=== PATIENT | female | born 1970 | race Caucasian/White ===

== ENCOUNTER 2019-10-19 16:48 | Outpatient (CLI) | payer BC, SELFPAY ==
--- NOTE | ~2019-10-19 | XR_ITS ---
XR lumbar spine 2-3V 10/19/2019 17:11 Indication: Low back pain Procedure: 3 views lumbar spine Comparison: 03/26/2013 Findings: Mild disc narrowing at L5-S1. No fracture or traumatic malalignment. There is probable old coccygeal fracture. Sacral foramen are symmetric. No evidence for spondylolysis or spondylolisthesis. Impression: 1: Mild lumbar spondylosis. Reviewed, dictated and finalized at location A. Impression: 1: Mild lumbar spondylosis.
== END 2019-10-19 16:49 | disposition home or self-care (01) ==
LOC: ANHIMG 16:54
PROVIDERS: PCP Family Medicine; Visit Provider Nurse Practitioner Family
DX: M54.9 Dorsalgia, unspecified (principal); M47.816 Spondylosis without myelopathy or radiculopathy, lumbar region
CPT/HCPCS: 72100

== ENCOUNTER 2020-03-17 17:05 | Outpatient (CLI) | payer BC, SELFPAY ==
--- NOTE | ~2020-03-17 | XR_ITS ---
EXAMINATION: XR foot RT 2V INDICATION: Right foot pain, initial encounter TECHNIQUE: Two views of the right foot are obtained. COMPARISON: None available FINDINGS: There is an acute, traumatic, closed, comminuted fracture at the base of the fourth proxima l phalanx which appears to extend to the fourth metatarsophalangeal joint. Soft tissue swelling surro unds the fracture. No additional acute osseous findings are evident. There is mild osteoarthritis of multiple interphalangeal joints. IMPRESSION: 1. Acute fracture at the base of the fourth proximal phalanx which appears to extend to the metatarso phalangeal joint. Reviewed, dictated and finalized at location A. IMPRESSION: 1. Acute fracture at the base of the fourth proximal phalanx which appears to e xtend to the metatarsophalangeal joint.
== END 2020-03-17 17:06 | disposition home or self-care (01) ==
LOC: ANHIMG 17:08
PROVIDERS: PCP Family Medicine; Visit Provider Nurse Practitioner Family
DX: M79.671 Pain in right foot (principal); S92.511A Displaced fracture of proximal phalanx of right lesser toe(s), initial encounter for closed fracture; W22.8XXA Striking against or struck by other objects, initial encounter
CPT/HCPCS: 73620

== ENCOUNTER → 2021-06-20 09:25 | Outpatient (CLI) | payer BC, SELFPAY ==
[2021-06-21 16:24] LABS: SARS-CoV-2 RNA PCR Negative
== END ==
PROVIDERS: PCP Family Medicine; Visit Provider Nurse Practitioner Family
DX: R68.89 Other general symptoms and signs (principal); Z20.822 Contact with and (suspected) exposure to COVID-19
CPT/HCPCS: C9803; U0003; U0005

== ENCOUNTER → 2022-05-11 14:45 | Outpatient (CLI) | payer BC, SELFPAY ==
--- NOTE | ~2022-05-11 | MM_ITS ---
EXAMINATION: MM screening mary BI w cate HISTORY: Screening mammogram TECHNIQUE: Craniocaudal and mediolateral oblique 3-D tomosynthesis images were obtained and synthetic 2-D images were generated. CAD analysis was submitted and interpreted. COMPARISON: No prior mammogram is available for comparison at this institution. BREAST PARENCHYMAL COMPOSITION: The breasts are heterogeneously dense, which may obscure small masses . FINDINGS: RIGHT BREAST: There is a mass in the posterior third of the upper outer quadrant of the breast. An as ymmetry is present in the middle third of the inner breast on the craniocaudal view. LEFT BREAST: There are possible masses in the middle/posterior third of the outer breast best appreci ated on the craniocaudal view. IMPRESSION: 1. Bilateral breast findings as described above which may represent the patient's baseline however no comparison is currently available. 2. Comparison with prior mammograms is necessary. BI-RADS Category 0: Incomplete: Needs comparison with prior mammograms. Reviewed, dictated and finalized at location A. BOILER IMPRESSION: 1. Bilateral breast findings as described above which may represent the patient 's baseline however no comparison is currently available. 2. Comparison with prior mammograms is necessary. BI-RADS Category 0: Incomplete: Needs comparison with prior mammograms.
== END ==
PROVIDERS: PCP Family Medicine; Visit Provider Obstetrics & Gynecology
DX: Z12.31 Encounter for screening mammogram for malignant neoplasm of breast (principal); R92.8 Other abnormal and inconclusive findings on diagnostic imaging of breast
CPT/HCPCS: 77063; 77067

== ENCOUNTER → 2022-06-16 08:25 | Outpatient (CLI) | payer BC, SELFPAY ==
--- NOTE | ~2022-06-16 | MMUS_ITS ---
EXAMINATION: MM diagnostic mary BI w cate, US breast RT limited HISTORY: Right breast mass on screening mammogram TECHNIQUE: Additional 3-D tomosynthesis images of the right breast were performed and synthetic 2-D i mages were generated. CAD analysis was submitted and interpreted. High resolution limited right breas t ultrasound was performed. COMPARISON: 05/11/2022, 08/13/2019, 07/20/2019 BREAST PARENCHYMAL COMPOSITION: The breasts are heterogeneously dense, which may obscure small masses . FINDINGS: MAMMOGRAPHIC FINDINGS: There is a 2.4 cm, obscured, equal density mass in the posterior left breast at 10:00 14 cm from the nipple. No suspicious calcification or architectural distortion are identified. ULTRASOUND: There is a 2.4 x 1.1 cm mass at the 10:00 location 9 cm from the nipple with sonographic features con sistent with an intramammary lymph node. IMPRESSION: 1. No mammographic or sonographic evidence of malignancy. 2. Recommend routine screening mammography in one year. BI-RADS Category 2: Benign finding(s). Reviewed, dictated and finalized at location A. FIT DIRECTOR IMPRESSION: 1. No mammographic or sonographic evidence of malignancy. 2. Recommend routine screening mammography in one year. BI-RADS Category 2: Benign finding(s).
== END ==
PROVIDERS: PCP Family Medicine; Visit Provider Obstetrics & Gynecology
DX: R92.8 Other abnormal and inconclusive findings on diagnostic imaging of breast (principal)
CPT/HCPCS: 76642; 77062; 77066; G0279

== ENCOUNTER 2022-10-15 03:47 | Day surgery (SDC) | payer BC, SELFPAY ==
[2022-10-01 14:29] VITALS: BMI 42.0
[2022-10-15 07:39] VITALS: BP 123/88; PULSE 56; RESP 16; TEMP 36.2; O2SAT 100; BMI 42.1
[2022-10-15] MEDS: LACTATED RINGERS 1,000 ML 150 ML IV CONT (07:48)
--- NOTE | 2022-10-15 08:06 | PM.HPGS ---
History of Present Illness History of Present Illness Consent: Risks, benefits, and alternatives have been discussed and questions answered. Patient agrees to proceed with procedure. Chief complaint: neoplasm screening Narrative: Michelle Martel is a 52 year old female here for first screening colonoscopy Review of Systems Constitutional: Constitutional: Denies headache(s) and Denies weakness Eyes: Eyes: Denies blurry vision ENT: Reports Normal hearing present, Denies headache(s) and Denies neck pain Cardiovascular: Cardiovascular: Denies chest pain and Denies dyspnea Respiratory: Respiratory: Denies dyspnea Gastrointestinal: Gastrointestinal: Reports no additional gastrointestinal complaints Genitourinary: Genitourinary: Denies dysuria Musculoskeletal: Musculoskeletal: Denies neck pain Integumentary/Breasts: Skin/Breast: Denies dry skin Neurologic: Reports Normal hearing present, Denies headache(s) and Denies weakness Psychiatric: Psychiatric: Denies anxiety Endocrine: Endocrine: Denies change in body appearance Hematologic/Lymphatic: Hematologic/Lymphatic: Denies easy bleeding Allergic/Immunologic: Allergic/Immunologic: Denies urticaria PMF Past Medical History Medical History Impingement syndrome of right shoulder Morbid (severe) obesity due to excess calories Family History Family History Mother Hypertension Family history of diabetes mellitus in first degree relative Diabetes mellitus Sibling Family history of diabetes mellitus in first degree relative Diabetes mellitus Father Social History Social History (Updated 07/22/22 @ 08:12 by SHRUTI Carrillo) Smoking status: Never smoker Second hand tobacco smoke exposure: No Alcohol intake: current Alcohol use details: occasional on holiday Substance use: never Substance use type: does not use Lack of Transportation: YES Lack of Food: Never True Current Housing: I Have Housing Concerned About Future Housing: No Difficulty Paying Gas/Electric Bills: No Difficulty Paying for Meds: No Currently Unemployed: No Education: Bachelor's Degree Difficulty w/ Childcare or Family Care: No Living arrangements: with family Occupation/Education: occupation 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 Gender identity (if verbalized by the patient): Female Spiritual care concerns: No Meds Home Medications and Allergies Home Medications Medication Instructions Recorded Confirmed Type cyclobenzaprine 10 mg tablet 10 mg PO TID PRN muscle spasm #30 10/17/19 10/15/22 Rx tabs albuterol sulfate 90 mcg/actuation 1 puff inhalation Q4H PRN 06/17/21 10/15/22 Rx aerosol inhaler (ProAir HFA) shortness of breath or wheezing #6.7 grams hydrochlorothiazide 25 mg tablet 25 mg PO DAILY #90 tabs 09/24/21 10/15/22 Rx semaglutide 1 mg/dose (4 mg/3 mL) 1 mg (0.75 mL) subcut WEEKLY #9 mL 09/24/21 10/15/22 Rx subcutaneous pen injector nebivolol 10 mg tablet 10 mg PO DAILY #90 tabs 04/05/22 10/15/22 Rx losartan 100 mg tablet 100 mg PO DAILY #90 tabs 10/01/22 10/15/22 Rx Allergies Allergy/AdvReac Type Severity Reaction Status Date / Time No Known Allergies Allergy Verified 10/15/22 07:38 Vital Signs Vital Signs - 24 hr 10/15/22 07:39 Temperature 97.1 F L Pulse Rate 56 L Respiratory Rate 16 Blood Pressure 123/88 Pulse Oximetry 100 Oxygen Delivery Room Air Exam Const: General: comfortable and no acute distress HENMT: Face/Nose/Sinus: Normal nares present Eyes: General: appearance normal, both eyes and all related structures Neck: Neck: no JVD Resp: Auscultation: clear to auscultation bilaterally Cardio: Rate: regular rate Rhythm: regular rhythm GI: Inspection: non-distended GI Palp: Yes Soft to palpation Skin: Genera
--- NOTE | 2022-10-15 08:06 | WPDANESEPPF ---
Anes - Initial Pre Proc Eval Procedure: Operation Date: 10/15/22 08:30 Proposed Procedures p Screening Colonoscopy - Cody Fraire MD Date/Time: 10/15/22 08:06 Surgeon: Cody Fraire MD Pre Op Diagnosis: neoplasm screening Patient Data Age: 52 Gender: F Height: 1.68 m Weight: 118.4 kg Last Vital Signs Temp 97.1 F L 10/15/22 07:39 Pulse 56 L 10/15/22 07:39 Resp 16 10/15/22 07:39 BP 123/88 10/15/22 07:39 Pulse Ox 100 10/15/22 07:39 O2 Del Method Room Air 10/15/22 07:39 Allergies Allergy/AdvReac Type Severity Reaction Status Date / Time No Known Allergies Allergy Verified 10/15/22 07:38 Home Medications Medication Instructions Recorded Confirmed Type cyclobenzaprine 10 mg tablet 10 mg PO TID PRN muscle spasm #30 10/17/19 10/15/22 Rx tabs albuterol sulfate 90 mcg/actuation 1 puff inhalation Q4H PRN 06/17/21 10/15/22 Rx aerosol inhaler (ProAir HFA) shortness of breath or wheezing #6.7 grams hydrochlorothiazide 25 mg tablet 25 mg PO DAILY #90 tabs 09/24/21 10/15/22 Rx semaglutide 1 mg/dose (4 mg/3 mL) 1 mg (0.75 mL) subcut WEEKLY #9 mL 09/24/21 10/15/22 Rx subcutaneous pen injector nebivolol 10 mg tablet 10 mg PO DAILY #90 tabs 04/05/22 10/15/22 Rx losartan 100 mg tablet 100 mg PO DAILY #90 tabs 10/01/22 10/15/22 Rx Patient hx anesthesia problems: none Family hx anesthesia problems: none Results Review: All pre-operative results and documents have been reviewed as part of the pre-operative evaluation. [facility] Past Medical History Medical History Impingement syndrome of right shoulder Morbid (severe) obesity due to excess calories Family History Family History Mother Hypertension Family history of diabetes mellitus in first degree relative Diabetes mellitus Sibling Family history of diabetes mellitus in first degree relative Diabetes mellitus Father Social History Social History (Updated 07/22/22 @ 08:12 by Nancy Morris [facility]) Smoking status: Never smoker Second hand tobacco smoke exposure: No Alcohol intake: current Alcohol use details: occasional on holiday Substance use: never Substance use type: does not use Lack of Transportation: YES Lack of Food: Never True Current Housing: I Have Housing Concerned About Future Housing: No Difficulty Paying Gas/Electric Bills: No Difficulty Paying for Meds: No Currently Unemployed: No Education: Bachelor's Degree Difficulty w/ Childcare or Family Care: No Living arrangements: with family Occupation/Education: occupation Additional occupation/education comments: personnel director Gender identity (if verbalized by the patient): Female Spiritual care concerns: No Anes - Eval Final PreProcedure Day of Procedure 10/15/22 08:06 Patient weight: morbidly obese Heart: regular rate and rhythm Lungs: clear to auscultation Airway: Mallampati scale class II Neurological: alert and oriented Last oral intake: >/= 8 hours ASA classification: III Emergent: no Anesthetic plan: proceed Anesthesia type and monitoring: general GIVS and standard monitoring Results Review: All pre-operative results and documents have been reviewed as part of the pre-operative evaluation. Informed Consent: The patient's anesthetic plan and its attendant risks and benefits were discussed with the patient/family/POA. Questions were solicited and answers provided to the satisfaction of the patient/family/POA.
[2022-10-15 08:37] VITALS: BP 114/79; PULSE 76; RESP 18; O2SAT 100
[2022-10-15 08:47] VITALS: BP 124/88; PULSE 68; RESP 15; O2SAT 99
[2022-10-15 08:57] VITALS: BP 138/84; PULSE 64; RESP 14; O2SAT 100
== END 2022-10-15 09:04 | disposition home or self-care (01) ==
PROVIDERS: PCP Family Medicine; Visit Provider Internal Medicine Gastroenterology
PROC: 0DJD8ZZ Inspection of Lower Intestinal Tract, Via Natural or Artificial Opening Endoscopic (ICD-10-PCS; CPT 45378; principal; 2022-10-15 08:30)
DX: Z12.11 Encounter for screening for malignant neoplasm of colon (principal); K57.30 Diverticulosis of large intestine without perforation or abscess without bleeding; K63.5 Polyp of colon; K64.8 Other hemorrhoids; Z79.51 Long term (current) use of inhaled steroids; Z79.899 Other long term (current) drug therapy; E66.01 Morbid (severe) obesity due to excess calories; Z68.41 Body mass index [BMI] 40.0-44.9, adult
CPT/HCPCS: 45385; 45381; 88305; J2704; J7120

== ENCOUNTER 2024-02-27 12:39 | Outpatient (CLI) | payer BC, SELFPAY ==
--- NOTE | ~2024-02-27 | XR_ITS ---
XR knee RT min 4V Ordering provider: BRIAN Daniel History: . S89.90XA - Unspecified injury of unspecified lower leg, i... . Comparison: None. FINDINGS: BONES: No acute fracture or dislocation. JOINT SPACES: Normal. SOFT TISSUES: Normal. IMPRESSION: No acute osseous abnormality right knee. Reviewed, dictated and finalized at location A.
== END 2024-02-27 12:40 | disposition home or self-care (01) ==
PROVIDERS: PCP Family Medicine; Visit Provider Nurse Practitioner Family
DX: S89.90XA Unspecified injury of unspecified lower leg, initial encounter (principal); X58.XXXA Exposure to other specified factors, initial encounter
CPT/HCPCS: 73564